=== PATIENT | female | born 2000 | race Caucasian/White ===

== ENCOUNTER 2020-12-25 20:29 | Emergency (ER) | payer BC ==
[~2020-12-25] VITALS: Ht 157.5 cm; Wt 48.0 kg
--- NOTE | 2020-12-26 00:50 | PHYS DOC ---
Past Medical History Past Surgical History: No Surgical History General Adult EDM: Chief Complaint: ABDOMINAL PAIN HPI: HPI: Patient is a 20-year-old female presenting for abdominal pain. Onset was approximately 1 month ago without any known inciting event, trauma, ingestion, exposure or other mechanism of injury. Nothing known makes better, certain positional movements and eating make worse. Pain described as sharp focal and knifelike. States at times it was in right lower quadrant but mostly focal to the right upper quadrant underneath her ribs. Timing of symptoms has been intermittent since onset mostly related to eating. Does admit to eating a burger yesterday evening and having unbearable pain ever since. No fever, chills, significant medical issues or medications taken on a daily basis. No alcohol, tobacco or illicit drug use. She is fully vaccinated against COVID-19. No prior pregnancies or intra-abdominal surgeries. She went to local urgent care and was immediately referred to our facility for diagnostic imaging studies to rule out appendicitis Review of Systems: Review of Systems: Fourteen body systems of review of systems have been reviewed. See HPI for pertinent positives and negative responses, other collins all other systems are negative, non-pertinent or non-contributory Heart Score: C/O Chest Pain: No Risk Factors: Risk Factors: DM, Current or recent (<one month) smoker, HTN, HLP, family history of CAD, obesity. Risk Scores: Score 0 - 3: 2.5% MACE over next 6 weeks - Discharge Home Score 4 - 6: 20.3% MACE over next 6 weeks - Admit for Clinical Observation Score 7 - 10: 72.7% MACE over next 6 weeks - Early Invasive Strategies Allergies: Allergies: Allergies Coded Allergies Type Severity Reaction Last Updated Verified No Known Drug Allergies 12/25/20 No Physical Exam: PE: Constitutional: Well developed, well nourished, no acute distress, non-toxic appearance. HENT: Normocephalic, atraumatic, bilateral external ears normal, oropharynx moist, no oral exudates, nose normal. Eyes: PERRLA, EOMI, conjunctiva normal, no discharge. Neck: Normal range of motion, no tenderness, supple, no stridor. Cardiovascular: Heart rate regular, sinus rhythm, no murmurs rubs or gallops Lungs & Thorax: Bilateral breath sounds clear to auscultation Abdomen: Bowel sounds normal, soft, right upper quadrant pain positive Abad's, positive McBurney sign with point tenderness, no rebound, no guarding, no masses, no pulsatile masses. Nonsurgical abdomen, no peritoneal signs Skin: Warm, dry, no erythema, no rash. Back: No tenderness, no CVA tenderness. Extremities: No tenderness, no cyanosis, no clubbing, ROM intact, no edema. Neurologic: Alert and oriented X 3, grossly normal motor & sensory function, no focal deficits noted. Psychologic: Anxious affect and mood Current Patient Data: Vital Signs: Vital Signs Date Time Temp Pulse Resp B/P (MAP) Pulse Ox O2 Delivery O2 Flow Rate FiO2 12/25/20 20:43 98.2 76 18 116/80 (92) 98 Room Air 98.2 EKG: EKG: [] Radiology/Procedures: Radiology/Procedures: [] Course & Med Decision Making: Course & Med Decision Making ABCs unremarkable HPI, physical exam and comprehensive ER work-up nonconcerning for any emergent or surgical issues Patient's UA concerning for active infection, joint decision made to treat with Macrobid No concerning findings based on lab or imaging studies. Advise close PCP and potential need for outpatient surgery and/or GI follow-up Strict return precautions discussed with good understanding by patient and family at bedside, all questions and concerns addressed prior to ER departure Cynthia Disclaimer: Cynthia Disclaimer: This electronic medical record was generated, in whole or in part, using a voice recognition dictation system. Departure Departure Impression: Primary Impression: UTI (urinary tract infection) Additional Impression: RUQ pain Disposition: HOME / SELF CARE / HOMELESS Condition: STABLE Referrals: PRAVIN BURNHAM MD (PCP) Additional Instructions: You have been evaluated in the Emergency Department today for abdominal pain. Your evaluation was not suggestive of any emergent condition requiring medical intervention at this time. You were found to have a urinary tract infection. Please continue to take the antibiotics as prescribed to completion Return to the Emergency Department if you experience worsening pain, persistent fevers greater than 100.4, recurrent vomiting, blood in vomit, blood in stool, dark tarry stool, chest pain, difficulty breathing, or any other concerning symptoms. As disclosed, I recommend you follow-up with your primary care physician to review ER visit today and need for potential outpatient GI and/or surgery consultation for your 1 month of right upper quadrant pain that worsens with eating Scripts Nitrofurantoin Monohyd/M-Cryst (MACROBID 100 MG CAPSULE) 100 Mg Capsule 1 CAP PO BID for 5 Days, #9 CAP 0 Refills Prov: KANNAN MATTHEW DO 12/26/20 KANNAN MATTHEW DO Dec 26, 2020 00:50
[2020-12-26 00:58] LABS: BILIRUBIN,URINE NEGATIVE (NEG); CLARITY,URINE CLEAR; COLOR,URINE YELLOW; NITRITE,URINE NEGATIVE (NEG); PROTEIN,URINE NEGATIVE (NEG-TRACE)
[2020-12-26] MEDS ORDERED: CONTRAST GIVEN. MC PRN (01:00)
[2020-12-26 01:06] LABS: BACTERIA,URINE MODERATE /HPF (0-FEW); RBC,URINE 0 /HPF (0-2)
[2020-12-26 01:07] LABS: AMORPHOUS SEDIMENT,UR PRESENT /HPF
[2020-12-26 01:14] LABS: BASO # 0.1 x10^3/uL (0.0-0.2); BASO % 1 % (0-3); EOS # 0.1 x10^3/uL (0.0-0.7); EOS % 1 % (0-3); HEMATOCRIT 41.7 % (36.0-47.0); HEMOGLOBIN 14.4 g/dL (12.0-15.5); LYMPH # 3.3 x10^3/uL (1.0-4.8); LYMPH % 46 % (24-48); MEAN CORPUSCULAR HEMOGLOBIN 31 pg (25-35); MEAN CORPUSCULAR HGB CONC 34 g/dL (31-37); MEAN CORPUSCULAR VOLUME 90 fL (79-100); MONO # 0.6 x10^3/uL (0.0-1.1); MONO % 8 % (0-9); NEUT # 3.1 x10^3/uL (1.8-7.7); NEUT % 44 % (31-73); PLATELET COUNT 216 x10^3/uL (140-400); RED BLOOD COUNT 4.62 x10^6/uL (3.50-5.40); RED CELL DISTRIBUTION WIDTH 12.3 % (11.5-14.5); WHITE BLOOD COUNT 7.1 x10^3/uL (4.0-11.0)
[2020-12-26] MEDS ORDERED: IOHEXOL 300 MG/ML 100ML VIAL. IV ONE (01:15)
[2020-12-26] MEDS ORDERED: MORPHINE SULFATE 2 MG/ML INJ. IVP ONE (01:15)
[2020-12-26 01:24] LABS: CALCIUM 9.3 mg/dL (8.5-10.1); CREATININE 0.8 mg/dL (0.6-1.0); GFR 90.5; POTASSIUM 3.2 mmol/L (3.5-5.1)
[2020-12-26 01:29] LABS: ALBUMIN 4.6 g/dL (3.4-5.0); ALBUMIN/GLOBULIN RATIO 1.3 (1.0-1.7); TOTAL BILIRUBIN 0.5 mg/dL (0.2-1.0); TOTAL PROTEIN 8.1 g/dL (6.4-8.2)
--- NOTE | 2020-12-26 02:09 | RAD ---
EXAM: CT Abdomen and Pelvis with IV contrast CLINICAL HISTORY: Reason: RUQ PAIN RADIATING TO RLQ COMPARISON: none TECHNIQUE: Helical CT of the abdomen and pelvis was performed following the administration of intrave nous contrast. Axial, coronal and sagittal reformatted images were generated. PQRS compliance statement - One or more of the following individualized dose reduction techniques wer e utilized for this study: 1. Automated exposure control 2. Adjustment of the mA and/or kV according to patient size 3. Use of iterative reconstruction technique FINDINGS: Lower Chest: Clear Abdomen and Pelvis: No focal liver lesion. Gallbladder is normal. No biliary ductal dilatation. Pancreas and spleen are u nremarkable. Adrenal glands are normal. Bilateral renal cysts are seen. No hydronephrosis. No hydrour eter. Bladder is unremarkable. Moderate colonic stool content is seen. Appendix is normal. No abdomin al or pelvic ascites. No abdominal or pelvic lymphadenopathy. Uterus and adnexa are grossly unremarka ble. Air is normal in caliber. Bones: No aggressive osseous lesion is seen. IMPRESSION: Gallbladder is normal. No biliary ductal dilatation. Moderate colonic stool content. No bowel obstruction. Appendix is normal. Electronically signed by: Zhao Carbajal MD (12/26/2020 2:07 AM) [facility]
[2020-12-26 02:50] VITALS: BP 102/63
[2020-12-26] MEDS ORDERED: NITR100C62 PO (02:50)
[2020-12-26] MEDS ORDERED: NITROFURANTOIN MONOHYD/M-CRYST 100 MG CAPSULE. PO ONE (03:00)
[2020-12-26] MEDS ORDERED: IOHEXOL 300 MG/ML 100ML VIAL. ONE (05:49)
== END 2020-12-26 03:05 | disposition home or self-care (01) ==
LOC: ER 20:29
DX: N39.0 Urinary tract infection, site not specified (principal)
CPT/HCPCS: 36415; 74177; 80053; 81001; 81025; 85025; 87086; 96374; 99285; J2270; Q9967

== ENCOUNTER → 2021-02-28 | Outpatient (CLI) | payer BC ==
[~2021-02-28] MED LIST: NITR100C62 PO
--- NOTE | 2021-03-06 09:09 | SLEEP ---
DATE OF STUDY: 02/28/2021 OBJECTIVE: The patient is a 21-year-old female with excessive somnolence, observed apnea, nightmares, sleep paralysis. Height 5 feet 2 inches, weight 105 pounds, body mass index 26. INTERPRETATION: Sleep architecture is characterized by sleep efficiency of 76% across the 7.7 hours of recording time. Stage volumes are normal for age. Sleep onset latency is 50 minutes. Respiratory monitoring shows a total of 16 events for an apnea-hypopnea index of 2.7 events per hour of sleep. Minimum oxygen saturation is 92%. Periodic limb movements of sleep occur at the rate of 15 per hour, 2 per hour associated with arousal. Cardiac arrhythmias are not observed. IMPRESSION: Essentially normal nighttime sleep study showing no evidence of sleep disordered breathing. Please also see the multiple sleep latency test report. VETO DR: Trupti TID: [id number]
--- NOTE | 2021-03-06 09:11 | SLEEP ---
DATE OF STUDY: 02/28/2021 OBJECTIVE: The patient is a 21-year-old female with suspected narcolepsy. INTERPRETATION: 1. The sleep latency on nap one is 9 minutes and there was REM sleep. On nap two is 2 minutes. On nap three, 2 minutes and there was REM sleep. On nap four, 30 minutes and there was REM sleep. On nap five, 17.5 minutes and there was REM sleep. The mean sleep latency across 5 naps is 8.7 minutes and REM was achieved on four of the five naps. IMPRESSION: Abnormal multiple sleep latency tests showing evidence of excessive sleepiness and REM sleep on 4 of 5 naps consistent with narcolepsy. Thank you for letting us help with the patient's care. EAMON DR: Trupti TID: [id number] CC: BILLY Guillen, PRAVIN BURNHAM MD
== END ==
LOC: SLPLAB 19:01
PROVIDERS: ATTEND Nurse Practitioner Family
DX: G47.19 Other hypersomnia (principal); R41.3 Other amnesia; R42 Dizziness and giddiness; R55 Syncope and collapse; G51.4 Facial myokymia
CPT/HCPCS: 95805; 95810